=== PATIENT | female | born 1975 | race Caucasian/White ===

== ENCOUNTER 2021-06-17 12:00 | Emergency (ER) | payer OTHER ==
[2021-06-17] MEDS ORDERED: NA CHLORIDE 0.9% 1,000 ML ONE (13:04)
--- NOTE | 2021-06-17 13:18 | RAD REPORT ---
EXAM DESCRIPTION: CT - Head Brain Wo Cont - 06/17/2021 1:06 pm CLINICAL HISTORY: DIZZINESS COMPARISON: No comparisons TECHNIQUE: Axial 5 mm thick images of the head were obtained without IV contrast. All CT scans are performed using dose optimization technique as appropriate and may include automated exposure control or mA/KV adjustment according to patient size. FINDINGS: No intracranial hemorrhage, mass, edema or shift of mid-line structures. No acute infarcti on changes seen. No abnormal extra-axial fluid collections. Ventricles are normal. Mastoid air cells and visualized portions of the paranasal sinuses are clear. No acute bony findings. IMPRESSION: Negative non-contrast CT head examination.
[2021-06-17 13:31] LABS: Urine Blood Negative (Negative); Urine Glucose Negative (Negative); Urine Protein Negative (Negative); Urine Specific Gravity 1.015 (1.005-1.030)
[2021-06-17 13:33] LABS: Absolute Lymphocytes (CBC) 3.2 K/uL (0.7-4.9); Basophils % 0.2 % (0-1.3); Hematocrit 40.2 % (36.0-45.0); Lymphocytes % 42.4 % (15.3-44.8); MPV 7.9 fL (7.6-11.3); RBC Red Blood Cell Count 4.41 M/uL (3.86-4.86)
[2021-06-17 13:36] LABS: Protime INR 0.95
[2021-06-17 13:53] LABS: ALT/SGPT 26 U/L (12-78); AST/SGOT 14 U/L (15-37); Albumin 3.5 g/dL (3.4-5.0); Alkaline Phosphatase 69 U/L (45-117); BUN Blood Urea Nitrogen 15 mg/dL (7-18); Bicarbonate 26 mmol/L (21-32); Bilirubin Direct < 0.1 mg/dL (0-0.2); Bilirubin Total 0.2 mg/dL (0.2-1.0); Glucose Level 91 mg/dL (74-106); Lipase 104 U/L (73-393); Magnesium 2.1 mg/dL (1.8-2.4); NT PRO-BNP 99 pg/mL (<125); Potassium 4.2 mmol/L (3.5-5.1); Protein, Total 6.9 g/dL (6.4-8.2); Sodium Level 142 mmol/L (136-145); Troponin (Emerg Dept Use Only) < 0.02 ng/mL (0.0-0.045)
--- NOTE | 2021-06-17 13:57 | RAD REPORT ---
EXAM DESCRIPTION: RAD - Chest Single View - 06/17/2021 1:19 pm CLINICAL HISTORY: COUGH COMPARISON: Portable September 11 TECHNIQUE: AP portable chest image was obtained 06/17/2021 1:19 pm . FINDINGS: Lungs are clear. Heart and vasculature are normal. No measurable pleural effusion and no p neumothorax. No acute bony abnormality seen. No acute aortic findings suspected. IMPRESSION: No acute cardiopulmonary process. No significant change from comparison study.
[2021-06-17] MEDS ORDERED: METOCLOPRAMIDE 10 MG/2mL INJ ONE (14:03)
[2021-06-17] MEDS ORDERED: KETOROLAC 30 MG/ML INJ ONE (14:04)
[2021-06-17] MEDS ORDERED: DIPHENHYDRAMINE 50 MG/ML VIAL ONE (14:04)
--- NOTE | 2021-06-17 15:16 | ER ---
Nurse's Notes [facility] Name: Kristina Hercules Age: 46 yrs Sex: Female : 1975 Arrival Date: 06/17/2021 Time: 12:02 Bed 18 Private MD: Diagnosis: Headache Presentation: 06/17 12:12 Chief complaint: Patient states: Left eyebrow twitching, headache, blur vision, vg1 sensitivity to light, nausea x2 days. Denies any injuries or hitting head. Coronavirus screen: Vaccine status: Patient reports receiving the 2nd dose of the covid vaccine. Client denies travel out of the [place] in the last 14 days. Ebola Screen: Patient negative for fever greater than or equal to 101.5 degrees Fahrenheit, and additional compatible Ebola Virus Disease symptoms. Initial Sepsis Screen: Does the patient meet any 2 criteria? No. Patient's initial sepsis screen is negative. Does the patient have a suspected source of infection? No. Patient's initial sepsis screen is negative. Risk Assessment: Do you want to hurt yourself or someone else? Patient reports no desire to harm self or others. Onset of symptoms was June 16, 2021. 12:12 Method Of Arrival: Ambulatory vg1 12:12 Acuity: MINISTERIO 3 vg1 Triage Assessment: 12:14 Headache History: The patient has had previous headaches and this one is different than vg1 previous episodes. General: Appears in no apparent distress. uncomfortable, Behavior is calm, cooperative. Pain: Complains of pain in head and left side of face Pain currently is 7 out of 10 on a pain scale. Pain began 1 day ago. Also complains of nausea, photophobia. 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 Gait is steady, Speech is normal, Facial symmetry appears normal. 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 - Social history:: Smoking status: Patient denies any tobacco usage or history of. - Family history:: not pertinent. Screenin:18 Abuse screen: Denies threats or abuse. Nutritional screening: No deficits noted. ll1 Tuberculosis screening: No symptoms or risk factors identified. 12:18 Fall Risk IV access (20 points). Total Randle Fall Scale indicates No Risk (0-24 pts). ll1 Assessment: 12:20 Reassessment: No changes from previously documented assessment. Patient and/or family ll1 updated on plan of care and expected duration. Pain level reassessed. Patient is alert, oriented x 3, equal unlabored respirations, skin warm/dry/pink. 13:20 Reassessment: No changes from previously documented assessment. Patient and/or family ll1 updated on plan of care and expected duration. Pain level reassessed. Patient is alert, oriented x 3, equal unlabored respirations, skin warm/dry/pink. 14:20 Reassessment: No changes from previously documented assessment. Patient and/or family ll1 updated on plan of care and expected duration. Pain level reassessed. Patient is alert, oriented x 3, equal unlabored respirations, skin warm/dry/pink. 15:20 Reassessment: No changes from previously documented assessment. Patient and/or family ll1 updated on plan of care and expected duration. Pain level reassessed. Patient is alert, oriented x 3, equal unlabored respirations, skin warm/dry/pink. Pain: Denies pain. 15:35 Reassessment: No changes from previously documented assessment. Patient and/or family ll1 updated on plan of care and expected duration. Pain level reassessed. Patient is alert, oriented x 3, equal unlabored respirations, skin warm/dry/pink. Patient states symptoms have improved. Vital Signs: 12:12 BP 123 / 90; Pulse 70; Resp 16; Temp 98.0; Pulse Ox 100% ; Weight 79.38 kg; Height 5 vg1 ft. 2 in. (157.48 cm); Pain 7/10; 13:23 BP 128 / 77; Pulse 69; Resp 17; Pulse Ox 97% on R/A; ll1 15:30 BP 116 / 64; Pulse 68; Resp 16; Pulse Ox 95% on R/A; ll1 12:12 Body Mass Index 32.01 (79.38 kg, 157.48 cm) vg1 Bello Coma Score: 14:10 Eye Response: spontaneous(4). Verbal Response: oriented(5). Motor Response: obeys demetri commands(6). Total: 15. ED Course: 12:02 Patient arrived in ED. as 12:14 Triage completed. vg1 12:14 Arm band placed on. vg1 12:17 Jorge Cho, RN is Primary Nurse. ll1 12:18 Patient placed in an exam room, on a stretcher. ll1 12:18 Patient has correct armband on for positive identification. Bed in low position. Call ll1 light in reach. Side rails up X 1. Pulse ox on. NIBP on. 12:49 Sujit Berumen MD is Attending Physician. demetri 13:05 CT Head Brain wo Cont In Process Unspecified. EDMS 13:10 Inserted saline lock: 22 gauge in left antecubital area, using aseptic technique. Blood ll1 collected. 13:19 XRAY Chest (1 view) In Process Unspecified. EDMS 15:16 Mario Alberto Cox MD is Referral Physician. demetri 15:38 No provider procedures requiring assistance completed. IV discontinued, intact, ll1 bleeding controlled, No redness/swelling at site. Pressure dressing applied. Administered Medications: 13:19 Drug: NS 0.9% 1000 ml Route: IV; Rate: 1 bolus; Site: left antecubital; ll1 15:50 Follow up: Response: No adverse reaction; IV Status: Completed infusion; IV Intake: ll1 1000ml 14:14 Drug: Ketorolac 30 mg Route: IVP; Site: left antecubital; ll1 15:50 Follow up: Response: No adverse reaction; RASS: Drowsy (-1) ll1 14:15 Drug: Reglan (metoCLOPramide) 10 mg Route: IVP; Site: left antecubital; ll1 15:50 Follow up: Response: No adverse reaction; RASS: Drowsy (-1) ll1 14:15 Drug: Benadryl (diphenhydrAMINE) 50 mg Route: IVP; Site: left antecubital; ll1 15:50 Follow up: Response: No adverse reaction; RASS: Drowsy (-1) ll1 Intake: 15:50 IV: 1000ml; Total: 1000ml. ll1 Outcome: 15:16 Discharge ordered by . demetri 15:38 Patient left the ED. ll1 15:38 Discharged to home ambulatory. ll1 15:38 Condition: stable 15:38 Discharge instructions given to patient, family, Instructed on discharge instructions, follow up and referral plans. medication usage, Demonstrated understanding of instructions, follow-up care, medications, Prescriptions given X 3. Signatures: Dispatcher [employer] EDMT Sujit Berumen MD MD cha Martinez, Amelia as Garcia, Victoria RN RN 1 Jorge Cho RN RN ll1 Corrections: (The following items were deleted from the chart) 13:24 12:10 Reassessment: No changes from previously documented assessment. Patient and/or ll1 family updated on plan of care and expected duration. Pain level reassessed. Patient is alert, oriented x 3, equal unlabored respirations, skin warm/dry/pink. ll1
--- NOTE | 2021-06-17 15:17 | EDPHYS ---
Physician Documentation [facility] Name: Kristina Hercules Age: 46 yrs Sex: Female : 1975 Arrival Date: 06/17/2021 Time: 12:02 Bed 18 Private MD: ARELY Physician Sujit Berumen HPI: 06/17 14:06 This 46 yrs old Female presents to ER via Ambulatory with complaints of demetri Headache, Blurred Vision. 14:06 The patient complains of pain to the forehead and left eye. The patient describes the demetri headache as a pressure. Onset: The symptoms/episode began/occurred 2 day(s) ago. Associated signs and symptoms: Pertinent positives: nausea, blurred vision. Severity of symptoms: At its worst the pain was moderate, in the emergency department the pain is unchanged. Headache History: The patient has had previous headaches and this one is different than previous episodes. The symptoms are alleviated by nothing. the symptoms are aggravated by nothing. The patient has experienced similar episodes in the past, several times, but different. 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 - Social history:: Smoking status: Patient denies any tobacco usage or history of. - Family history:: not pertinent. ROS: 14:06 Constitutional: Negative for fever, chills, and weight loss, Eyes: Negative for injury, demetri pain, redness, and discharge, ENT: Negative for injury, pain, and discharge, Neck: Negative for injury, pain, and swelling, Cardiovascular: Negative for chest pain, palpitations, and edema, Respiratory: Negative for shortness of breath, cough, wheezing, and pleuritic chest pain, Abdomen/GI: Negative for abdominal pain, nausea, vomiting, diarrhea, and constipation, Back: Negative for injury and pain, : Negative for injury, bleeding, discharge, and swelling, Skin: Negative for injury, rash, and discoloration, Neuro: Negative for headache, weakness, numbness, tingling, and seizure, Psych: Negative for depression, anxiety, suicide ideation, homicidal ideation, and hallucinations, Allergy/Immunology: Negative for hives, rash, and allergies, Endocrine: Negative for neck swelling, polydipsia, polyuria, polyphagia, and marked weight changes. 14:06 MS/Extremity: Negative for injury and deformity. 14:06 MS/extremity: 14:06 Neuro: Positive for headache, visual changes, of the left eye. Exam: 14:06 Constitutional: This is a well developed, well nourished patient who is awake, alert, demetri and in no acute distress. Head/Face: Normocephalic, atraumatic. Eyes: Pupils equal round and reactive to light, extra-ocular motions intact. Lids and lashes normal. Conjunctiva and sclera are non-icteric and not injected. Cornea within normal limits. Periorbital areas with no swelling, redness, or edema. ENT: Nares patent. No nasal discharge, no septal abnormalities noted. Tympanic membranes are normal and external auditory canals are clear. Oropharynx with no redness, swelling, or masses, exudates, or evidence of obstruction, uvula midline. Mucous membranes moist. Neck: Trachea midline, no thyromegaly or masses palpated, and no cervical lymphadenopathy. Supple, full range of motion without nuchal rigidity, or vertebral point tenderness. No Meningismus. Chest/axilla: Normal chest wall appearance and motion. Nontender with no deformity. No lesions are appreciated. Cardiovascular: Regular rate and rhythm with a normal S1 and S2. No gallops, murmurs, or rubs. Normal PMI, no JVD. No pulse deficits. Respiratory: Lungs have equal breath sounds bilaterally, clear to auscultation and percussion. No rales, rhonchi or wheezes noted. No increased work of breathing, no retractions or nasal flaring. Abdomen/GI: Soft, non-tender, with normal bowel sounds. No distension or tympany. No guarding or rebound. No evidence of tenderness throughout. Back: No spinal tenderness. No costovertebral tenderness. Full range of motion. Skin: Warm, dry with normal turgor. Normal color with no rashes, no lesions, and no evidence of cellulitis. MS/ Extremity: Pulses equal, no cyanosis. Neurovascular intact. Full, normal range of motion. Neuro: Awake and alert, GCS 15, oriented to person, place, time, and situation. Cranial nerves II-XII grossly intact. Motor strength 5/5 in all extremities. Sensory grossly intact. Cerebellar exam normal. Normal gait. Psych: Awake, alert, with orientation to person, place and time. Behavior, mood, and affect are within normal limits. 14:06 ECG was reviewed by the Attending Physician. Vital Signs: 12:12 BP 123 / 90; Pulse 70; Resp 16; Temp 98.0; Pulse Ox 100% ; Weight 79.38 kg; Height 5 vg1 ft. 2 in. (157.48 cm); Pain 7/10; 13:23 BP 128 / 77; Pulse 69; Resp 17; Pulse Ox 97% on R/A; ll1 15:30 BP 116 / 64; Pulse 68; Resp 16; Pulse Ox 95% on R/A; ll1 12:12 Body Mass Index 32.01 (79.38 kg, 157.48 cm) vg1 Bello Coma Score: 14:10 Eye Response: spontaneous(4). Verbal Response: oriented(5). Motor Response: obeys demetri commands(6). Total: 15. MDM: 12:49 Patient medically screened. demetri 14:10 Differential diagnosis: cluster headache, hypertensive headache, intracerebral demetri hemorrhage, migraine, neoplasm, sinusitis, subarachnoid bleed, subdural hematoma, temporal arteritis, tension headache, trigeminal neuralgia. Data reviewed: vital signs, nurses notes, lab test result(s), EKG, radiologic studies, CT scan, plain films. 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 Test interpretation: by ED physician or midlevel provider: ECG, plain radiologic studies. Counseling: I had a detailed discussion with the patient and/or guardian regarding: the historical points, exam findings, and any diagnostic results supporting the discharge/admit diagnosis, lab results, radiology results, the need for outpatient follow up, for definitive care, a family practitioner, a neurologist. 06/17 12:52 Order name: Basic Metabolic Panel demetri 06/17 12:52 Order name: CBC with Diff; Complete Time: 13:58 demetri 06/17 12:52 Order name: LFT's; Complete Time: 13:58 demetri 06/17 12:52 Order name: Magnesium; Complete Time: 13:58 [facility] 06/17 12:52 Order name: NT PRO-BNP; Complete Time: 13:58 [facility] 06/17 12:52 Order name: PT-INR; Complete Time: 13:58 [facility] 06/17 12:52 Order name: Troponin (emerg Dept Use Only); Complete Time: 13:58 [facility] 06/17 12:52 Order name: XRAY Chest (1 view); Complete Time: 14:14 [facility] 06/17 12:52 Order name: Urine Culture [facility] 06/17 12:52 Order name: Lipase; Complete Time: 13:58 [facility] 06/17 12:53 Order name: Basic Metabolic Panel; Complete Time: 13:58 [facility] 06/17 13:31 Order name: Urine Dipstick-Ancillary; Complete Time: 13:58 [facility] 06/17 14:04 Order name: CRP [facility] 06/17 14:04 Order name: Sed Rate; Complete Time: 15:15 [facility] 06/17 12:52 Order name: EKG; Complete Time: 12:53 [facility] 06/17 12:52 Order name: Cardiac monitoring; Complete Time: 13:19 [facility] 06/17 12:52 Order name: EKG - Nurse/Tech; Complete Time: 13:19 [facility] 06/17 12:52 Order name: IV Saline Lock; Complete Time: 12:53 [facility] 06/17 12:52 Order name: Labs collected and sent; Complete Time: 12:53 [facility] 06/17 12:52 Order name: O2 Per Protocol; Complete Time: 12:53 [facility] 06/17 12:52 Order name: O2 Sat Monitoring; Complete Time: 12:53 [facility] 06/17 12:52 Order name: Urine Dipstick-Ancillary (obtain specimen); Complete Time: 13:23 [facility] 06/17 12:52 Order name: CT Head Brain wo Cont; Complete Time: 13:58 [facility] EC:06 Rate is 68 beats/min. Rhythm is regular. QRS Superior is Normal. NE interval is normal. QRS demetri interval is normal. QT interval is normal. No Q waves. T waves are Normal. No ST changes noted. Clinical impression: Normal ECG and No evidence of ischemia. Interpreted by me. Reviewed by me. Administered Medications: 13:19 Drug: NS 0.9% 1000 ml Route: IV; Rate: 1 bolus; Site: left antecubital; ll1 15:50 Follow up: Response: No adverse reaction; IV Status: Completed infusion; IV Intake: ll1 1000ml 14:14 Drug: Ketorolac 30 mg Route: IVP; Site: left antecubital; ll1 15:50 Follow up: Response: No adverse reaction; RASS: Drowsy (-1) ll1 14:15 Drug: Reglan (metoCLOPramide) 10 mg Route: IVP; Site: left antecubital; ll1 15:50 Follow up: Response: No adverse reaction; RASS: Drowsy (-1) ll1 14:15 Drug: Benadryl (diphenhydrAMINE) 50 mg Route: IVP; Site: left antecubital; ll1 15:50 Follow up: Response: No adverse reaction; RASS: Drowsy (-1) ll1 Disposition Summary: 06/17/21 15:16 Discharge Ordered Location: Home demetri Problem: new demetri Symptoms: have improved demetri Condition: Stable demetri Diagnosis - Headache demetri Followup: demetri - With: Private Physician - When: 2 - 3 days - Reason: Recheck today's complaints, Continuance of care, Re-evaluation by your physician Followup: demetri - With: - When: 2 - 3 days - Reason: Recheck today's complaints, Re-evaluation by your physician Discharge Instructions: - Discharge Summary Sheet demetri - General Headache Without Cause demetri - General Headache Without Cause, [id number] demetri Forms: - Medication Reconciliation Form demetri - Thank You Letter demetri - Antibiotic Education demetri - Prescription Opioid Use demetri Prescriptions: - Zofran 4 mg Oral Tablet - take 1 tablet by ORAL route every 12 hours As needed; 20 tablet; Refills: 0, demetri Product Selection Permitted - Diclofenac Sodium 75 mg Oral tablet,delayed release (DR/EC) - take 1 tablet by ORAL route 2 times per day; 20 tablet; Refills: 0, Product demetri Selection Permitted - Medrol (Geovani) 4 mg Oral Tablets, Dose Pack - take 1 tablet by ORAL route as directed - follow package instructions; 1 demetri packet; Refills: 0, Product Selection Permitted Signatures: Dispatcher [employer] Sujit Liz MD MD cha Garcia, Victoria, RN RN vg1 Jorge Cho RN RN ll1
[2021-06-17 15:54] VITALS: TEMP 98
[2021-06-17 16:05] VITALS: BP 128/77; O2SAT 97
--- OUTSIDE RECORDS SUMMARY | 2021-06-17 23:36 | XMS REPORT | Continuity of Care Document ---
:1975 Author Organization [facility] t Address [address] [place] [address] Care Team Providers Name Role Phone Natalie GASTELUM Attending Clinician Unavailable Lab, Fam Pob I Attending Clinician Unavailable Livier DUEÑASP Attending Clinician LIVIER Attending Clinician Unavailable Doctor Unassigned, Name Attending Clinician Unavailable ROSIE Attending Clinician Unavailable Payers Payer Name Policy Type Policy Number Effective Date Expiration Date S ource Problems Condition Condition Condition Status Onset Resolution Last Treating Co mments Source Name Details Category Date Date Treatment Clinician Date No known No known Disease Unive rs active active ity of problems problems [place] [facility] Sciatica Sciatica Problem Active [facility] left [facility] left [facility] - side side [facility] History of History of Problem Resolve Univers arthritis arthritis [email or web address] d ity of [place] Physici ans Bipolar 1 Bipolar [address] disorder disorder [facility] History of History of Problem Resolve Univers depression depression [email or web address] d [facility] of [place] [facility] Irritable Irritable Problem Active [facility] bowel bowel [facility] - syndrome syndrome Memori a l [facility] History of History of Problem Resolve Univers psychiatri psychiatri HL7.[email or web address] d ity of c care c care [place] [facility] Sleep Sleep Problem Active [facility] apnea apnea [facility] History of History of Problem Resolve Univers type 1 type 1 [email or web address].[email or web address] d ity of diabetes diabetes [place] mellitus mellitus Physic i ans Sciatica, Sciatica, Problem Active [facility] right side right side [place] - [facility] Right hip Right hip Problem Active Uni vers pain pain HL7.CCDAR2 [facility] [place] Physici ans History of History of Problem Active C [facility] gestationa gestationa [place] - l diabetes l diabetes Me moria l [facility] Sciatica Sciatica Problem Active Unive rs of right of right HL7.CCDAR2 it y of side side [place] Physici ans Osteoarthr Osteoarthr Problem Active [facility] itis of itis of [facility] - both hips, both hips, Me moria unspecifie unspecifie l d d Outpati osteoarthr osteoarthr en t itis type itis type Clin ics Nonintract Nonintract Diagnosis Active [facility] able able [facility] - headache, headache, Tito teresita unspecifie unspecifie l d d Outpati chronicity chronicity en t pattern, pattern, Clinic s unspecifie unspecifie d headache d headache type type Elevated Elevated Diagnosis Active [facility] BP without BP without [place] - diagnosis diagnosis Tito teresita of of l hypertensi hypertensi Ou tpati on on ent Clinics Dizziness Dizziness Diagnosis Active [facility] kes - [facility] 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 Allergies, Adverse Reactions, Alerts Allergy Allergy Status Severity Reaction(s) Onset Inactive Treating Comm ents Source Name Type Date Date Clinician OPIOIDS Drug Active ITCHING Univers - Class 3-24 ity of MORPHINE 00:00: [place] ANALOGUE 00 Medical S Branch Opioids Propensi Active Itching 0 Univer s - ty to 3-24 ity of Morphine adverse 00:00: [place] Analogue reaction 00 Medica l s s Branch NO KNOWN Allergy Active [facility] ALLERGIE [facility] MORPHINE Adverse Active itchy skin [facility] Reaction [facility] Vicodin Adverse Active Info Not [facility] Reaction Available [facility] morphine drug Active Univers allergy ity of [place] [facility]ici ans Vicodin drug Active Univers TABS allergy ity of [place] Physici ans Family History Family Member Diagnosis Comments Start Date Stop Date Source Grandmother Family history of Univer sity of [place] Cardiac abnormality Physi cians Father Family history of Univers ity of [place] Cardiac abnormality Physi julesaniya Father Family history of Univers ity of [place] hypertension Physicians Grandfather Family history of Univer sity of [place] Cardiac abnormality Physi dano Grandfather Family history of Univer sity of [place] malignant neoplasm Physic ians Social History Social Habit Start Date Stop Date Quantity Comments Source Sex Assigned At [facility] Smoking Status Start Date Stop Date Source [facility] if [facility] Never smoker [facility] Physicians Medications Ordered Filled Start Stop Current Ordering Indication Dosage Frequency Signature Comments Components Source Medication Medication Date Date Medication? Clinician (SIG) Name Name Meloxicam Meloxicam 2019- No Cheli 1-[address] 3 04-26 Millender tablets [facility] - 00:00: 00:00 Memoria 00 :00 l [facility] naproxen 2018-0 Yes [id number] 550mg Take 1 Un analy sodium 550 3-24 tablet by ity of mg tablet 00:00: mouth 2 00 (two) Medical times Branch daily with meals. metaxalone 2018-0 Yes [id number] 800mg Take 1 Univers 800 mg 3-24 tablet by ity of tablet 00:00: mouth 3 [place] 00 (three) Medical times Branch daily. HYDROcodone 2018-0 Yes [id number] 1{tbl} Take 1 Univers -acetaminop 3-24 tablet by ity of hen 10-325 00:00: mouth [place] mg tablet 00 every 6 Medical (six) Branch hours as needed for Pain (scale 7-10). naproxen 2019-0 Yes [id number] 550mg Take 1 Un analy sodium 550 3-24 tablet by ity of mg tablet 00:00: mouth 2 [place] 00 (two) Medical times Branch daily with meals. metaxalone 2018-0 Yes [id number] 800mg Take 1 Univers 800 mg 3-24 tablet by ity of tablet 00:00: mouth 3 [place] 00 (three) Medical times Branch daily. HYDROcodone 2019-0 Yes [id number] 1{tbl} Take 1 Univers -acetaminop 3-24 tablet by ity of hen 10-325 00:00: mouth [place] mg tablet 00 every 6 Medical (six) Branch hours as needed for Pain (scale 7-10). naproxen 2019-0 Yes [id number] 550mg Take 1 Un analy sodium 550 3-24 tablet by ity of mg tablet 00:00: mouth 2 (two) Medical times Branch daily with meals. metaxalone 2018- Yes [id number] 800mg Take 1 Univers 800 mg 3-24 tablet by ity of tablet 00:00: mouth 3 00 (three) Medical times Branch daily. HYDROcodone 2018- Yes [id number] 1{tbl} Take 1 Univers -acetaminop 3-24 tablet by ity of hen 10-325 00:00: mouth [place] mg tablet 00 every 6 Medical (six) Branch hours as needed for Pain (scale 7-10). Nalfon 400 Nalfon 400 2017- Yes SANTIAGO 1 Q8H TAKE 1 Univers MG Oral MG Oral 5-25 SABBARA CAPSULE ity of Capsule Capsule 00:00: N.P. EVERY 8 [place] 00 HOURS [place]ici [place] Trileptal Trileptal Yes Unive rs TABS TABS ity of [place] Physici ans Tylenol Tylenol Yes Univers Sinus CAPS Sinus CAPS ity of [place] Physici ans Cymbalta 30 Cymbalta 30 Yes U nivers MG Oral MG Oral ity of Capsule Capsule [place] Delayed Delayed Physici Release Release ans Particles Particles Trileptal Trileptal Yes Cheli [address] Millender [facility] Clinics Flonase Flonase Yes Cheli 1 spray [facility] Millender [facility] Hydrocodone Hydrocodone Yes Cheli [address] -Acetaminop -Acetaminop Millender as needed [facility] - hen hen [facility]oria [facility] Metaxalone Metaxalone Yes Cheli [address] Millender [facility] Clinics Naproxen Naproxen 2018- No Cheli [address] 03-27 Millender [facility] - 00:00 Memoria :00 l Outpati ent Clinics Vital Signs Vital Name Observation Time Observation Value Comments Source HEIGHT 2020-08-24 157.5 cm 12:15:00 WEIGHT 2020-08-24 84.006 kg 12:15:00 BP Systolic 2018-02-10 110 mm[Hg] Location: [facility] 08:36:00 Position: [place] Physician s Sitting BP Diastolic 2018-02-10 77 mm[Hg] Location: [facility] 08:36:00 Position: [place] Physician s Sitting Weight 2018-02-10 166 [lb_av] [facility] 08:36:00 [place] Physician s Body Mass Index 2018-02-10 30.36 kg/m2 University o f Calculated 08:36:00 [place] Physician s Heart Rate 2018-02-10 65 /min [facility] 08:36:00 [place] Physician s BP Systolic 2017-12-27 103 mm[Hg] Location: [facility]; [facility] ::00 Position: [place] Physician s Sitting BP Diastolic 2017-12-27 74 mm[Hg] Location: [facility]; [facility] :: Position: [place] Physician s Sitting Height 2017-12-27 62 [in_us] [facility] ::00 [place] Physician s Weight 2017-12-27 172 [lb_av] [facility] :26:00 [place] Physician s Body Mass Index 2017-12-27 31.46 kg/m2 University o f Calculated 09:26:00 [place] Physician s Heart Rate 2017-12-27 71 /min [facility] :26:00 [place] Physician s Procedures Procedure Date / Time Performing Clinician Source Performed History of Bunionectomy [facility] Physicians History of Tubal [facility] ligation Physicians Encounters Start End Encounter Admission Attending Care Care Encounter Source Date/Time Date/Time Type Type Clinicians Facility Department ID 2020-09-29 2020-09-29 [address]ín G[address] [facility] [id number] Univers 09:40:00 09:40:00 YECENIA [id number] [facility] [place] [facility] 2020-09-29 2020-09-[address] [facility] [id number] Univers 09:40:00 09:40:[facility] 2020-09-[address] [facility] [id number] Univers 09:40:00 09:40:00 YECENIA [id number] [facility] [place] [facility] 2020-09-22 2020-09-[address] [facility] [id number] Univers 09:40:00 09:40:00 YECENIA [facility] [place] [facility] 2020-09-20 2020-09-[address] [facility] [id number] Univers 09:40:00 09:40:00 [id number] ity [facility] 2020-08-30 2020-08-[address] [facility] [id number] Univers 09:20:00 09:20:00 YECENIA [id number] ity [facility] 2020-08-30 2020-08-[address] [facility] [id number] Univers 09:20:00 09:20:00 YECENIA ity [facility] 2020-08-24 2020-08-24 Emergency ER [facility] Emergency [id number] [facility] 12:05:00 12:05:00 2020-02-18 2020-02-18 Laboratory Lab, Adc Fam Pob I [facility] [id number] Univers 10:28:14 10:48:14 Only Angelita Maier [facility] [id number] ity of [place] [id number] as Professio [phone] [address] Office [address] [employer] 2020-02-18 2020-02-18 Outpatient Benjamín LIVIER [facility] [id number] Univers 10:40:00 10:40:00 ANGELITA ity [facility] 2020-02-18 2020-02-18 Letter Doctor RAJI [id number] Univers 00:00:00 00:00:00 (Out) Unassigned, ADAN [id number] ity of [place] [facility] [id number] Rd as [phone] [address] 2020-02-18 2020-02-18 Letter Doctor RAJI [id number] Univers 00:00:00 00:00:00 (Out) Unassigned, ADAN [id number] ity of [place] [facility] [id number] Rd as [id number] [address] 2018-10-29 2018-10-29 [facility] [id number] 14:15:00 14:15:[address] [place] [facility] 2018-02-10 2018-02-10 MCKENNA Olivas [place] [id number] Univers 08:30:00 08:30:00 t; DOUG HENDERSON Orthopedics ity [facility] DOUG HENDERSON Physi ci ans 2017-12-27 2017-12-27 Appointmen MCKENNA VELEZ [place] [id number] Univers 09:15:00 09:15:00 t; DOUG HENDERSON Orthopedics ity [facility] DOUG HENDERSON Physi ci ans 2017-12-11 2017-12-11 [facility] [id number] 15:57:00 15:57:00 t [facility] 2017-12-11 2017-12-11 [facility] [id number] 12:02:00 12:02:00 [facility] 2017-12-10 2017-12-10 [facility] [id number] 08:30:00 08:30:00 [facility] 2017-11-27 2017-11-27 [facility] [id number] 09:15:00 09:15:[address] [facility] Results Test Description Test Time Test Comments Results Result Sour e Comments RAD, FOOT, MIN 3 2020-08-06 Reason for VIEWS, RIGHT 0 exam:->injuryI 12:40:00 s the patient ?->NoS HERMES Anglin [facility] the : 1975 bedside?->N Sex: o F *FINAL REPORT RAD, FOOT, MIN 3 VIEWS, RIGHT INDICATION: injury COMPARISON: None TECHNIQUE: AP, lateral and oblique radiographs of the foot FINDINGS/IMPRESSION: Soft tissue swelling overlying the first tarsometatarsal joint. No acute fracture. Signed: Alvino Obregon Verified Date/Time: 08/24/2020 12:40:38 Reading Location: [address] Radiology Reading Room [U] XRAY HIPS 2017-12-04 Images acquired, not U niversity of BILATERAL MIN [address] as VWS AND AP 09:35:00 accession number. Physici ans PELVIS [id number]
== END 2021-06-17 15:38 | disposition home or self-care (01) ==
LOC: ER 12:00
DX: R51.9 Headache, unspecified (principal); E11.9 Type 2 diabetes mellitus without complications
CPT/HCPCS: 96361; 93005; 87088; 85025; 87086; 80048; 36415; 83735; 85610; 80076; 85652; 81003; 84484; 83690; 83880; 86140; 70450; 71045; 96375; 96374; 99284; J2765; J1200; J7030